=== PATIENT | male | born 1970 | race Caucasian/White ===

== ENCOUNTER 2023-10-22 00:40 | Observation (INO) | payer OTHER ==
[2023-10-22 01:28] LABS: PH,URINE 5.5 (5.0-8.0); URINE APPEARANCE CLOUDY; URINE BILIRUBIN NEGATIVE (NEGATIVE); URINE COLOR YELLOW; URINE GLUCOSE (UA) 3+ (NEGATIVE); URINE KETONE NEGATIVE (NEGATIVE); URINE LEUK ESTERASE 2+ (NEGATIVE); URINE NITRITE NEGATIVE (NEGATIVE); URINE PROTEIN NEGATIVE (NEGATIVE); URINE UROBILINOGEN 0.2 mg/dL (0.2-1.0)
[2023-10-22] MEDS ORDERED: ACETAMINOPHEN INJECTION 100 ML IVPB ONE (01:50)
[2023-10-22] MEDS: ACETAMINOPHEN 1000 MG/100 ML BAG IVPB ONE (01:51)
[2023-10-22 01:57] LABS: BASO % 0.3 % (0-2.0); EOS % 1.6 % (0-4.5); HEMATOCRIT 35.5 % (35.4-49); HEMOGLOBIN 12.2 GM/dL (11.7-16.9); LYMPH % 20.6 % (8-40); MCH 28.1 pg (25.7-33.7); MCHC 34.2 g/dl (32.0-35.9); MEAN CELL VOLUME 81.9 fl (80-96); MEAN PLT VOLUME 8.9 fl (7.5-11.1); MONO % 11.4 % (3.8-10.2); NEUT % 66.1 % (42.8-82.8); PLATELET COUNT 297 10^3/uL (134-434); RBC 4.34 M/mm3 (4.00-5.60); RDW 13.7 % (11.9-15.9); WHITE BLOOD COUNT 11.4 K/mm3 (4.0-10.0)
[2023-10-22 02:25] LABS: POTASSIUM 3.9 mmol/L (3.5-5.1)
[2023-10-22 02:26] LABS: INR 0.82 (0.83-1.09); PROTHROMBIN TIME (PATIENT) 9.3 SEC (9.7-13.0)
[2023-10-22 02:27] LABS: ALBUMIN 3.6 g/dl (3.4-5.0); CALCIUM 9.6 mg/dL (8.5-10.1)
[2023-10-22 02:28] LABS: ACTIVATED PTT 30.2 SECONDS (25.2-36.5); BLOOD UREA NITROGEN 22.2 mg/dL (7-18)
[2023-10-22 02:31] LABS: CREATININE 0.9 mg/dL (0.55-1.3)
[2023-10-22 02:32] LABS: BILIRUBIN,TOTAL 0.3 mg/dL (0.2-1); TOT PROT 7.3 g/dl (6.4-8.2)
[2023-10-22 03:14] LABS: EPI CELLS 0.2 /uL (0-25.1); HYALINE CASTS 0.29 /uL (0-3.1); URINE BACTERIA 642.1 /uL (0-1359); URINE RBC 62.5 /uL (0-23.9); URINE WBC 1539.5 /uL (0-25.8)
[2023-10-22] MEDS: SODIUM CHLORIDE 0.9% 500 ML INFUS.BAG IV ONE (03:56)
[2023-10-22] MEDS ORDERED: CEFTRIAXONE 1 GM/50 ML BAG ONE (04:39)
[2023-10-22] MEDS: CEFTRIAXONE 1 GM in DEXTROSE 5%-WATER - 100 ML IVPB ONE (04:42)
[2023-10-22] MEDS ORDERED: KETOCONAZOLE 2% CREAM - 60GM TUBE TP ONE (05:07)
[2023-10-22] MEDS ORDERED: LACTULOSE 20 GM/30 ML UDC (FOR ORAL USE ONLY) ONE (06:41)
[2023-10-22] MEDS ORDERED: POLYETHYLENE GLYCOL (HEALTHYLAX) 3350 17 GM PACKET ONE (06:41)
[2023-10-22] MEDS: LACTULOSE 20 GM/30 ML UDC (FOR ORAL USE ONLY) PO ONE (07:26)
[2023-10-22] MEDS: KETOCONAZOLE 2% TOPICAL CREAM 15 GM TUBE TP ONE (07:27)
[2023-10-22] MEDS: POLYETHYLENE GLYCOL (HEALTHYLAX) 3350 17 GM PACKET PO ONE (07:27)
[2023-10-22] MEDS: INSULIN ASPART SLIDING SCALE (NOVOLOG) 1 VIAL SQ SCH (07:43)
[2023-10-22 08:55] LABS: BASO % 0.2 % (0-2.0); EOS % 1.4 % (0-4.5); HEMATOCRIT 35.2 % (35.4-49); LYMPH % 21.9 % (8-40); MCH 27.9 pg (25.7-33.7); MCHC 34.1 g/dl (32.0-35.9); MEAN CELL VOLUME 81.8 fl (80-96); MEAN PLT VOLUME 8.8 fl (7.5-11.1); MONO % 11.3 % (3.8-10.2); NEUT % 65.2 % (42.8-82.8); PLATELET COUNT 293 10^3/uL (134-434); RBC 4.31 M/mm3 (4.00-5.60); RDW 13.4 % (11.9-15.9); WHITE BLOOD COUNT 9.8 K/mm3 (4.0-10.0)
[2023-10-22 09:12] LABS: POTASSIUM 3.7 mmol/L (3.5-5.1)
[2023-10-22 09:14] LABS: CALCIUM 9.2 mg/dL (8.5-10.1)
[2023-10-22 09:15] LABS: ALBUMIN 3.3 g/dl (3.4-5.0); BLOOD UREA NITROGEN 18.8 mg/dL (7-18); MAGNESIUM 1.9 mg/dL (1.8-2.4)
[2023-10-22 09:18] LABS: PHOSPHOROUS 3.5 mg/dL (2.5-4.9)
[2023-10-22 09:19] LABS: BILIRUBIN,TOTAL 0.3 mg/dL (0.2-1); CREATININE 0.8 mg/dL (0.55-1.3); TOT PROT 7.1 g/dl (6.4-8.2)
[2023-10-22] MEDS ORDERED: TAMSULOSIN HCL 0.4 MG CAP ONE (10:31)
[2023-10-22] MEDS ORDERED: ASPIRIN 81 MG CHEWABLE TABLETS ONE (10:31)
[2023-10-22] MEDS ORDERED: CLOPIDOGREL BISULFATE 75 MG TABLET (FP) ONE (10:31)
[2023-10-22] MEDS: ASPIRIN COATED 81 MG TABLET.EC PO SCH (10:32)
[2023-10-22] MEDS: CLOPIDOGREL BISULFATE 75 MG TABLET (FP) PO SCH (10:32)
[2023-10-22] MEDS: TAMSULOSIN HCL 0.4 MG CAP PO SCH (10:32)
[2023-10-22] MEDS: ATORVASTATIN CA 80 MG TABLET (FP) PO SCH (21:23)
[2023-10-23] MEDS: POLYETHYLENE GLYCOL (HEALTHYLAX) 3350 17 GM PACKET PO SCH (09:14)
[2023-10-23] MEDS: CEFTRIAXONE 1 GM in DEXTROSE 5%-WATER - 50 ML IVPB SCH (09:15)
[2023-10-23] MEDS ORDERED: VANCOMYCIN 1 GRAM (PRE-DOCKED) 1,000 MG/250 ML BAG IVPB ONE (09:30)
[2023-10-23 09:43] LABS: HEMATOCRIT 35.8 % (35.4-49); HEMOGLOBIN 12.3 GM/dL (11.7-16.9); MCH 28.3 pg (25.7-33.7); MCHC 34.2 g/dl (32.0-35.9); MEAN CELL VOLUME 82.7 fl (80-96); PLATELET COUNT 343 10^3/uL (134-434); RBC 4.33 M/mm3 (4.00-5.60); RDW 13.5 % (11.9-15.9); WHITE BLOOD COUNT 9.5 K/mm3 (4.0-10.0)
[2023-10-23 09:58] LABS: POTASSIUM 4.1 mmol/L (3.5-5.1)
[2023-10-23] MEDS ORDERED: ENOXAPARIN NA (PORCINE) 40 MG/0.4 ML DISP.SYRIN SQ SCH (10:00)
[2023-10-23 10:04] LABS: ALBUMIN 3.1 g/dl (3.4-5.0)
[2023-10-23 10:05] LABS: CALCIUM 9.2 mg/dL (8.5-10.1)
[2023-10-23 10:06] LABS: BLOOD UREA NITROGEN 12.6 mg/dL (7-18); CREATININE 0.6 mg/dL (0.55-1.3)
[2023-10-23 10:08] LABS: BILIRUBIN,TOTAL 0.4 mg/dL (0.2-1); PHOSPHOROUS 2.4 mg/dL (2.5-4.9); TOT PROT 6.7 g/dl (6.4-8.2)
[2023-10-23 10:37] LABS: MAGNESIUM 1.7 mg/dL (1.8-2.4)
[2023-10-23] MEDS: VANCOMYCIN/WATER FOR INJ (PEG) 1,000 MG/250 ML BAG IVPB ONE (10:46)
[2023-10-23] MEDS: KETOCONAZOLE 2% CREAM - 60GM TUBE TP SCH (10:50)
[2023-10-23] MEDS: PEG 3350/NA SULF BICARB CL/KCL 4000 ML SOLN.RECON PO ONE (12:17)
[2023-10-23] MEDS ORDERED: LINEZOLID 600 MG PREMIX BAG 600 MG/300 ML BAG IVPB SCH (14:00)
[2023-10-23] MEDS: LINEZOLID 600 MG PREMIX BAG 600 MG/300 ML BAG IVPB SCH (15:13)
[2023-10-23] MEDS: LINEZOLID 600 MG PREMIX BAG 600 MG in PREMIX 300 IVPB SCH (15:17)
[2023-10-23] MEDS: MAGNESIUM 1GM/D5W - 1 GM/100 ML IVPB IVPB ONE (18:05)
[2023-10-23] MEDS: NAPH,MB-DB/K PH,MBDB POWDER PACKET PO SCH (18:06)
[2023-10-23] MEDS: MAGNESIUM SULF 50% (8.12 MEQ/2 ML-1 GM VIAL) IVPB ONE (18:07)
[2023-10-23] MEDS: GABAPENTIN 100 MG CAPSULE PO SCH (22:11)
[2023-10-24 08:48] LABS: HEMATOCRIT 35.6 % (35.4-49); HEMOGLOBIN 12.2 GM/dL (11.7-16.9); MCH 27.9 pg (25.7-33.7); MCHC 34.1 g/dl (32.0-35.9); MEAN CELL VOLUME 81.9 fl (80-96); PLATELET COUNT 370 10^3/uL (134-434); RBC 4.35 M/mm3 (4.00-5.60); RDW 13.5 % (11.9-15.9); WHITE BLOOD COUNT 6.3 K/mm3 (4.0-10.0)
[2023-10-24 09:10] LABS: POTASSIUM 4.5 mmol/L (3.5-5.1)
[2023-10-24 09:26] LABS: ALBUMIN 2.8 g/dl (3.4-5.0); CALCIUM 9.1 mg/dL (8.5-10.1)
[2023-10-24 09:27] LABS: BLOOD UREA NITROGEN 11.6 mg/dL (7-18); MAGNESIUM 1.9 mg/dL (1.8-2.4)
[2023-10-24 09:29] LABS: CREATININE 0.8 mg/dL (0.55-1.3); PHOSPHOROUS 2.4 mg/dL (2.5-4.9)
[2023-10-24 09:31] LABS: BILIRUBIN,TOTAL 0.3 mg/dL (0.2-1); TOT PROT 6.5 g/dl (6.4-8.2)
[2023-10-24 09:40] VITALS: RESP 18
[2023-10-24] MEDS: FUROSEMIDE 20 MG TABLET (FP) PO SCH (09:44)
[2023-10-24] MEDS: INSULIN (LEVEMIR) 100 UNITS/ML UNITS SQ SCH (12:48)
[2023-10-24 15:33] VITALS: BMI 20.3
[2023-10-25] MEDS ORDERED: DEXTROSE 50%-WATER - 25 GM/50 ML VIAL IVPUSH ONE (09:32)
[2023-10-25] MEDS: DEXTROSE 50%-WATER 25 GM/50 ML DISP.SYRIN IVPUSH ONE (09:41)
[2023-10-25] MEDS: POLYETHYLENE GLYCOL (HEALTHYLAX) 3350 17 GM PACKET PO SCH (12:28)
[2023-10-25 12:38] LABS: POTASSIUM 4.5 mmol/L (3.5-5.1)
[2023-10-25 12:41] LABS: ALBUMIN 3.3 g/dl (3.4-5.0); CALCIUM 9.8 mg/dL (8.5-10.1)
[2023-10-25 12:42] LABS: BLOOD UREA NITROGEN 12.6 mg/dL (7-18)
[2023-10-25 12:45] LABS: CREATININE 0.8 mg/dL (0.55-1.3)
[2023-10-25 12:46] LABS: BILIRUBIN,TOTAL 0.3 mg/dL (0.2-1); TOT PROT 7.5 g/dl (6.4-8.2)
[2023-10-25] MEDS: KETOCONAZOLE 2% TOPICAL CREAM 15 GM TUBE TP SCH (15:16)
[2023-10-25] MEDS: INSULIN (LEVEMIR) 100 UNITS/ML UNITS SQ SCH (22:18)
[2023-10-26 08:36] LABS: BASO % 0.4 % (0-2.0); EOS % 1.6 % (0-4.5); HEMATOCRIT 36.4 % (35.4-49); HEMOGLOBIN 12.5 GM/dL (11.7-16.9); LYMPH % 28.1 % (8-40); MCH 28.2 pg (25.7-33.7); MCHC 34.3 g/dl (32.0-35.9); MEAN CELL VOLUME 82.1 fl (80-96); MEAN PLT VOLUME 8.4 fl (7.5-11.1); MONO % 12.6 % (3.8-10.2); NEUT % 57.3 % (42.8-82.8); PLATELET COUNT 413 10^3/uL (134-434); RBC 4.43 M/mm3 (4.00-5.60); RDW 13.7 % (11.9-15.9); WHITE BLOOD COUNT 6.7 K/mm3 (4.0-10.0)
[2023-10-26 08:49] LABS: POTASSIUM 4.8 mmol/L (3.5-5.1)
[2023-10-26 08:51] LABS: BLOOD UREA NITROGEN 16.4 mg/dL (7-18); CALCIUM 9.5 mg/dL (8.5-10.1)
[2023-10-26 08:55] LABS: CREATININE 0.9 mg/dL (0.55-1.3)
[2023-10-26 08:56] LABS: BILIRUBIN,TOTAL 0.2 mg/dL (0.2-1); TOT PROT 6.6 g/dl (6.4-8.2)
[2023-10-26] MEDS: LINEZOLID 600 MG TABLET (RESTRICTED TO ID) PO SCH (10:18)
[2023-10-26 15:27] VITALS: BP 137/79; PULSE 96; TEMP 97.8
== END 2023-10-26 16:01 | disposition home or self-care (01) ==
LOC: JER 00:40 → JERBED 05:20 → J6S 12:01 → J8W 10-23 11:34
PROVIDERS: ADMIT Internal Medicine
PROC: 3E03329 Introduction of Other Anti-infective into Peripheral Vein, Percutaneous Approach (ICD-10-PCS; principal; 2023-10-22)
PROC: 3E033NZ Introduction of Analgesics, Hypnotics, Sedatives into Peripheral Vein, Percutaneous Approach (ICD-10-PCS; 2023-10-22)
PROC: 3E013VG Introduction of Insulin into Subcutaneous Tissue, Percutaneous Approach (ICD-10-PCS; 2023-10-22)
PROC: 3E033GC Introduction of Other Therapeutic Substance into Peripheral Vein, Percutaneous Approach (ICD-10-PCS; 2023-10-22)
PROC: 3E0337Z Introduction of Electrolytic and Water Balance Substance into Peripheral Vein, Percutaneous Approach (ICD-10-PCS; 2023-10-22)
DX: N30.91 Cystitis, unspecified with hematuria (principal); R15.9 Full incontinence of feces; E11.9 Type 2 diabetes mellitus without complications; E78.5 Hyperlipidemia, unspecified; I25.10 Atherosclerotic heart disease of native coronary artery without angina pectoris; B36.9 Superficial mycosis, unspecified; M79.602 Pain in left arm; Z95.1 Presence of aortocoronary bypass graft; K59.00 Constipation, unspecified; S46.319A Strain of muscle, fascia and tendon of triceps, unspecified arm, initial encounter; X58.XXXA Exposure to other specified factors, initial encounter; Y93.9 Activity, unspecified
CPT/HCPCS: 36415; 72131-TC; 74176-TC; 76700-TC; 80053; 81003; 82550; 82947; 82962; 82977; 83036; 83735; 84100; 85025; 85027; 85610; 85730; 86850; 86900; 86901; 87086; 87186; 93005; 93010; 96365; 96366; 96367; 96372; 96375; 99285-25; G0378; J0131

== ENCOUNTER 2024-05-05 17:06 | Emergency (ER) | payer OTHER ==
[2024-05-05 17:10] VITALS: BP 143/74; PULSE 93; RESP 16; TEMP 98.6; BMI 22.3
[2024-05-05] MEDS ORDERED: SULFAMETHOXAZOLE/TRIMETHOPRIM 800MG/160MG D.S. TABLET ONE (18:27)
[2024-05-05] MEDS: SULFAMETHOXAZOLE/TRIMETHOPRIM 800MG/160MG D.S. TABLET PO ONE (18:32)
== END 2024-05-05 18:41 | disposition home or self-care (01) ==
LOC: JER 17:06
DX: L03.116 Cellulitis of left lower limb (principal)
CPT/HCPCS: 99283-25

== ENCOUNTER 2024-05-14 20:58 | Inpatient (IN) | payer OTHER ==
[2024-05-15] MEDS ORDERED: PIPERACILLIN/TAZOB 3.375 GM 3.375 GM/50 ML BAG IVPB ONE (00:29)
[2024-05-15] MEDS ORDERED: VANCOMYCIN 1 GM PREMIX (F) 1 GM/200 ML BAG ONE (00:29)
[2024-05-15] MEDS: PIPERACILLIN/TAZOB 3.375 GM 3.375 GM in DEXTROSE 5%-WATER - 50 ML IVPB ONE (01:01)
[2024-05-15 01:38] LABS: BASO % 0.9 % (0-2.0); EOS % 0.8 % (0-4.5); HEMATOCRIT 30.5 % (35.4-49); HEMOGLOBIN 10.1 GM/dL (11.7-16.9); LYMPH % 20.7 % (8-40); MCH 27.5 pg (25.7-33.7); MEAN CELL VOLUME 83.3 fl (80-96); MEAN PLT VOLUME 7.9 fl (7.5-11.1); MONO % 12.5 % (3.8-10.2); NEUT % 65.1 % (42.8-82.8); PLATELET COUNT 683 10^3/uL (134-434); RBC 3.66 M/mm3 (4.00-5.60); RDW 13.7 % (11.9-15.9); WHITE BLOOD COUNT 11.8 K/mm3 (4.0-10.0)
[2024-05-15] MEDS: VANCOMYCIN 1,000 MG in DEXTROSE 5%-WATER - 250 ML IVPB ONE (01:50)
[2024-05-15 02:07] LABS: POTASSIUM 5.7 mmol/L (3.5-5.1)
[2024-05-15 02:09] LABS: CALCIUM 9.1 mg/dL (8.5-10.1)
[2024-05-15 02:10] LABS: ALBUMIN 2.7 g/dl (3.4-5.0); BLOOD UREA NITROGEN 25.4 mg/dL (7-18)
[2024-05-15 02:13] LABS: CREATININE 1.2 mg/dL (0.55-1.3)
[2024-05-15 02:14] LABS: BILIRUBIN,TOTAL 0.4 mg/dL (0.2-1); TOT PROT 7.9 g/dl (6.4-8.2)
[2024-05-15 03:11] LABS: ERYTHROCYTE SEDIMENTATION RATE 113 mm/hr (0-20)
[2024-05-15] MEDS ORDERED: GABAPENTIN 100 MG CAPSULE ONE (06:40)
[2024-05-15] MEDS: GABAPENTIN 100 MG CAPSULE PO SCH (06:42)
[2024-05-15 06:52] LABS: POTASSIUM 5.3 mmol/L (3.5-5.1)
[2024-05-15 06:54] LABS: BLOOD UREA NITROGEN 25.3 mg/dL (7-18); CALCIUM 9.1 mg/dL (8.5-10.1)
[2024-05-15 06:57] LABS: CREATININE 1.3 mg/dL (0.55-1.3)
[2024-05-15] MEDS: INSULIN ASPART SLIDING SCALE (NOVOLOG) 1 VIAL SQ SCH (09:50)
[2024-05-15] MEDS: EMPAGLIFLOZIN (JARDIANCE) 10 MG TABLET PO SCH (10:10)
[2024-05-15] MEDS: FUROSEMIDE 20 MG TABLET (FP) PO SCH (10:11)
[2024-05-15] MEDS: TAMSULOSIN HCL 0.4 MG CAP PO SCH (10:11)
[2024-05-15] MEDS: ENOXAPARIN NA (PORCINE) 40 MG/0.4 ML DISP.SYRIN SQ SCH (10:11)
[2024-05-15] MEDS: CLOPIDOGREL BISULFATE 75 MG TABLET (FP) PO SCH (10:11)
[2024-05-15] MEDS: ASPIRIN COATED 81 MG TABLET.EC PO SCH (10:11)
[2024-05-15] MEDS: metoPROLOL SUCCINATE 25 MG TAB.SR.24H (FP) PO SCH (10:12)
[2024-05-15] MEDS: EZETIMIBE 10 MG TABLET (FP) PO SCH (10:12)
[2024-05-15] MEDS ORDERED: ACETAMINOPHEN 325 MG TABLET (FP) ONE (10:16)
[2024-05-15 11:44] VITALS: BMI 20.2
[2024-05-15] MEDS: CEFTRIAXONE 1 G/50 ML PREMIX 50 ML IVPB SCH (13:30)
[2024-05-15] MEDS ORDERED: VANCOMYCIN 1,000 MG in DEXTROSE 5%-WATER - 250 ML IVPB SCH (14:00)
[2024-05-15] MEDS: VANCOMYCIN 1 GM PREMIX (F) 1 GM/200 ML BAG IVPB SCH (14:33)
[2024-05-15] MEDS: SODIUM ZIRCONIUM CYCLOSILICATE (LOKELMA) 5 GM PACKET PO SCH (16:47)
[2024-05-15] MEDS: INSULIN (LEVEMIR) 100 UNITS/ML UNITS SQ SCH (22:20)
[2024-05-15] MEDS: ATORVASTATIN CA 80 MG TABLET (FP) PO SCH (22:23)
[2024-05-16] MEDS: SILVER SULFADIAZINE 1% TOP CREAM 50 GM JAR TP SCH (09:27)
[2024-05-16 09:46] LABS: BASO % 0.9 % (0-2.0); EOS % 0.7 % (0-4.5); HEMATOCRIT 31.3 % (35.4-49); HEMOGLOBIN 10.1 GM/dL (11.7-16.9); LYMPH % 19.9 % (8-40); MCHC 32.2 g/dl (32.0-35.9); MEAN CELL VOLUME 83.9 fl (80-96); MEAN PLT VOLUME 7.5 fl (7.5-11.1); MONO % 10.6 % (3.8-10.2); NEUT % 67.9 % (42.8-82.8); PLATELET COUNT 650 10^3/uL (134-434); RBC 3.73 M/mm3 (4.00-5.60); RDW 13.5 % (11.9-15.9); WHITE BLOOD COUNT 11.4 K/mm3 (4.0-10.0)
[2024-05-16 10:18] LABS: ALBUMIN 2.4 g/dl (3.4-5.0); BLOOD UREA NITROGEN 23.6 mg/dL (7-18)
[2024-05-16 10:21] LABS: CREATININE 0.9 mg/dL (0.55-1.3)
[2024-05-16 10:22] LABS: BILIRUBIN,TOTAL 0.5 mg/dL (0.2-1)
[2024-05-16 10:23] LABS: TOT PROT 7.1 g/dl (6.4-8.2)
[2024-05-16] MEDS ORDERED: INSULIN ASPART SLIDING SCALE (NOVOLOG) 1 VIAL SQ SCH (17:23)
[2024-05-16] MEDS: INSULIN ASPART SLIDING SCALE (NOVOLOG) 1 VIAL SQ SCH (17:34)
[2024-05-16] MEDS: INSULIN (LEVEMIR) 100 UNITS/ML UNITS SQ SCH (21:24)
[2024-05-16] MEDS ORDERED: INSULIN (LEVEMIR) 100 UNITS/ML UNITS SQ SCH (22:00)
[2024-05-17 09:02] LABS: BASO % 0.5 % (0-2.0); EOS % 0.5 % (0-4.5); HEMATOCRIT 31.6 % (35.4-49); HEMOGLOBIN 10.7 GM/dL (11.7-16.9); LYMPH % 17.8 % (8-40); MCHC 33.8 g/dl (32.0-35.9); MEAN PLT VOLUME 7.4 fl (7.5-11.1); MONO % 9.5 % (3.8-10.2); NEUT % 71.7 % (42.8-82.8); PLATELET COUNT 676 10^3/uL (134-434); RBC 3.81 M/mm3 (4.00-5.60); RDW 14.1 % (11.9-15.9); WHITE BLOOD COUNT 11.7 K/mm3 (4.0-10.0)
[2024-05-17 09:42] LABS: POTASSIUM 5.2 mmol/L (3.5-5.1)
[2024-05-17 09:49] LABS: MAGNESIUM 2.1 mg/dL (1.8-2.4)
[2024-05-17 09:52] LABS: ALBUMIN 2.6 g/dl (3.4-5.0); CALCIUM 9.2 mg/dL (8.5-10.1)
[2024-05-17 09:53] LABS: BLOOD UREA NITROGEN 25.8 mg/dL (7-18)
[2024-05-17 09:57] LABS: BILIRUBIN,TOTAL 0.2 mg/dL (0.2-1); TOT PROT 7.7 g/dl (6.4-8.2)
[2024-05-17 09:59] LABS: CREATININE 1.1 mg/dL (0.55-1.3)
[2024-05-17] MEDS: INSULIN ASPART SLIDING SCALE (NOVOLOG) 1 VIAL SQ SCH (16:54)
[2024-05-17] MEDS: DOXYCYCLINE HYCLATE 100 MG CAPSULE PO SCH (17:50)
[2024-05-18 09:36] LABS: EOS % 1.6 % (0-4.5); HEMATOCRIT 30.7 % (35.4-49); HEMOGLOBIN 10.2 GM/dL (11.7-16.9); LYMPH % 25.1 % (8-40); MCH 27.7 pg (25.7-33.7); MCHC 33.2 g/dl (32.0-35.9); MEAN CELL VOLUME 83.5 fl (80-96); MONO % 9.8 % (3.8-10.2); NEUT % 62.5 % (42.8-82.8); PLATELET COUNT 640 10^3/uL (134-434); RBC 3.68 M/mm3 (4.00-5.60); RDW 13.9 % (11.9-15.9); WHITE BLOOD COUNT 8.8 K/mm3 (4.0-10.0)
[2024-05-18 10:08] LABS: ALBUMIN 2.5 g/dl (3.4-5.0); BLOOD UREA NITROGEN 21.4 mg/dL (7-18); CALCIUM 9.1 mg/dL (8.5-10.1); MAGNESIUM 2.1 mg/dL (1.8-2.4)
[2024-05-18 10:12] LABS: BILIRUBIN,TOTAL 0.3 mg/dL (0.2-1); CREATININE 0.9 mg/dL (0.55-1.3); TOT PROT 7.3 g/dl (6.4-8.2)
[2024-05-18] MEDS: ACETAMINOPHEN 325 MG TABLET (FP) PO PRN (21:45)
[2024-05-18] MEDS: INSULIN (LEVEMIR) 100 UNITS/ML UNITS SQ SCH (21:46)
[2024-05-19 09:05] LABS: HEMATOCRIT 31.1 % (35.4-49); HEMOGLOBIN 10.3 GM/dL (11.7-16.9); MCH 27.9 pg (25.7-33.7); MEAN CELL VOLUME 84.4 fl (80-96); MEAN PLT VOLUME 7.4 fl (7.5-11.1); PLATELET COUNT 619 10^3/uL (134-434); RBC 3.69 M/mm3 (4.00-5.60); RDW 13.8 % (11.9-15.9); WHITE BLOOD COUNT 7.4 K/mm3 (4.0-10.0)
[2024-05-19 09:22] LABS: POTASSIUM 4.6 mmol/L (3.5-5.1)
[2024-05-19 09:35] LABS: ALBUMIN 2.5 g/dl (3.4-5.0); BLOOD UREA NITROGEN 32.5 mg/dL (7-18); CALCIUM 9.2 mg/dL (8.5-10.1)
[2024-05-19 09:39] LABS: BILIRUBIN,TOTAL 0.3 mg/dL (0.2-1); TOT PROT 7.5 g/dl (6.4-8.2)
[2024-05-19 10:19] LABS: BASO % 0.5 % (0-2.0); LYMPH % 22.8 % (8-40); MONO % 8.7 % (3.8-10.2)
[2024-05-19] MEDS ORDERED: INSULIN ASPART SLIDING SCALE (NOVOLOG) 1 VIAL SQ ONE ×2 (11:18→16:53)
[2024-05-20 09:42] LABS: BASO % 0.9 % (0-2.0); EOS % 1.1 % (0-4.5); HEMATOCRIT 31.7 % (35.4-49); HEMOGLOBIN 10.2 GM/dL (11.7-16.9); MCH 27.4 pg (25.7-33.7); MCHC 32.3 g/dl (32.0-35.9); MEAN CELL VOLUME 84.7 fl (80-96); MEAN PLT VOLUME 7.4 fl (7.5-11.1); MONO % 8.9 % (3.8-10.2); NEUT % 68.1 % (42.8-82.8); PLATELET COUNT 623 10^3/uL (134-434); RBC 3.74 M/mm3 (4.00-5.60); RDW 14.1 % (11.9-15.9); WHITE BLOOD COUNT 7.7 K/mm3 (4.0-10.0)
[2024-05-20 10:38] LABS: POTASSIUM 4.9 mmol/L (3.5-5.1)
[2024-05-20 10:43] LABS: ALBUMIN 2.5 g/dl (3.4-5.0); BLOOD UREA NITROGEN 29.8 mg/dL (7-18); MAGNESIUM 2.1 mg/dL (1.8-2.4)
[2024-05-20 10:47] LABS: CREATININE 0.9 mg/dL (0.55-1.3)
[2024-05-20 10:48] LABS: BILIRUBIN,TOTAL 0.2 mg/dL (0.2-1); TOT PROT 7.6 g/dl (6.4-8.2)
[2024-05-20 15:44] VITALS: RESP 18
[2024-05-21 06:46] VITALS: BP 121/67; PULSE 66; TEMP 98.6
[2024-05-21 09:14] LABS: BASO % 0.5 % (0-2.0); EOS % 1.4 % (0-4.5); HEMATOCRIT 32.2 % (35.4-49); HEMOGLOBIN 10.9 GM/dL (11.7-16.9); LYMPH % 28.5 % (8-40); MCH 28.1 pg (25.7-33.7); MCHC 33.8 g/dl (32.0-35.9); MEAN CELL VOLUME 83.2 fl (80-96); MEAN PLT VOLUME 7.2 fl (7.5-11.1); MONO % 8.6 % (3.8-10.2); PLATELET COUNT 628 10^3/uL (134-434); RBC 3.87 M/mm3 (4.00-5.60); RDW 14.5 % (11.9-15.9); WHITE BLOOD COUNT 6.1 K/mm3 (4.0-10.0)
[2024-05-21 09:40] LABS: POTASSIUM 4.8 mmol/L (3.5-5.1)
[2024-05-21 09:47] LABS: ALBUMIN 2.7 g/dl (3.4-5.0); BLOOD UREA NITROGEN 24.7 mg/dL (7-18); CALCIUM 9.6 mg/dL (8.5-10.1); MAGNESIUM 2.3 mg/dL (1.8-2.4)
[2024-05-21 09:50] LABS: CREATININE 0.9 mg/dL (0.55-1.3)
[2024-05-21 09:52] LABS: BILIRUBIN,TOTAL 0.2 mg/dL (0.2-1); TOT PROT 8.1 g/dl (6.4-8.2)
== END 2024-05-21 12:32 | disposition home or self-care (01) | DRG 383 ==
LOC: JER 20:58 → JERBED 05-15 03:29 → J8W 05-15 11:01
PROVIDERS: ADMIT Student in an Organized Health Care Education/Training Program; ATTEND Internal Medicine
DX: L03.116 Cellulitis of left lower limb (principal); E11.622 Type 2 diabetes mellitus with other skin ulcer; E11.65 Type 2 diabetes mellitus with hyperglycemia; D64.9 Anemia, unspecified; E87.1 Hypo-osmolality and hyponatremia; E87.5 Hyperkalemia; I10 Essential (primary) hypertension; L97.909 Non-pressure chronic ulcer of unspecified part of unspecified lower leg with unspecified severity; E78.5 Hyperlipidemia, unspecified; I25.10 Atherosclerotic heart disease of native coronary artery without angina pectoris; L08.9 Local infection of the skin and subcutaneous tissue, unspecified
CPT/HCPCS: 36415; 73590-TC-LT-FY; 80048; 80053; 82533; 82607; 82728; 82962; 83036; 83550; 83735; 85025; 85651; 86140; 87040; 93005; 93010; 93922; 93926-TC; 93971-TC; 99285-25; G0480